=== PATIENT | female | born 1960 ===

== ENCOUNTER 2017-05-14 09:46 | Emergency (ER) | payer OTHER ==
[2017-05-14 09:46] VITALS: BMI 27.1
[2017-05-14 11:07] LABS: BASO % 0.9 % (0.0-2.0); EOS % 0.6 % (0.0-4.0); HEMOGLOBIN 11.9 g/dL (11.0-16.0); LYMPH # 1.2 K/uL (1.0-4.3); LYMPH % 25.6 % (20.0-40.0); MEAN CELL VOLUME 79.3 fL (81.0-99.0); MEAN CORPUSCULAR HEMOGLOBIN 25.8 pg (27.0-31.0); MEAN CORPUSCULAR HGB CONC 32.5 g/dL (33.0-37.0); MEAN PLATELET VOLUME 9.1 fL (7.2-11.7); MONO # 0.4 K/uL (0.0-0.8); MONO % 9.8 % (0.0-10.0); NEUT # 2.9 K/uL (1.8-7.0); NEUT % 63.1 % (50.0-75.0); NRBC % 0.1 % (0.0-2.0); RBC 4.61 Mil/uL (3.80-5.20); RED CELL DISTRIBUTION WIDTH 14.6 % (11.5-14.5); WHITE BLOOD COUNT 4.6 K/uL (4.8-10.8)
[2017-05-14 11:14] LABS: URINE BILIRUBIN NEGATIVE (NEGATIVE); URINE BLOOD NEGATIVE (NEGATIVE); URINE CLARITY Clear (Clear); URINE COLOR Yellow (YELLOW); URINE GLUCOSE (UA) NORMAL (Normal); URINE LEUKOCYTE ESTERASE NEG Leu/uL (Negative); URINE NITRATE NEGATIVE (NEGATIVE); URINE PROTEIN NEGATIVE (NEGATIVE); URINE UROBILINOGEN NORMAL mg/dL (0.2-1.0)
--- NOTE | 2017-05-14 11:47 | C.PDOC ---
History Of Present Illness 57-year-old female, PMHx includes Breast CA (dx one year ago, post lumpectomy, six months ago, currently on chemo every week), presents to the emergency department with complaints of vaginal bleeding over the past five days,. Patient states she went through menopause years ago, but she has been experiencing persistent vaginal bleed x4 days. States she has associated suprapubic pain. Patient notes a Hx of ovarian/breast CA in family. Denies nausea/vomiting, fevers or chills. Time Seen by Provider: 05/14/17 10:23 Chief Complaint (Nursing): Female Genitourinary History Per: Patient History/Exam Limitations: no limitations Onset/Duration Of Symptoms: Days Current Symptoms Are (Timing): Still Present Severity: Moderate Past Medical History Reviewed: Historical Data, Nursing Documentation, Vital Signs Vital Signs: Last Vital Signs Temp 98.0 F 05/14/17 13:24 Pulse 63 05/14/17 13:24 Resp 20 05/14/17 13:24 BP 136/84 05/14/17 13:24 Pulse Ox 99 05/14/17 18:39 - Medical History PMH: Hyperlipidemia, Kidney Stones, Chronic Kidney Disease - [facility] Procedures EXCISION OF LEFT BREAST, OPEN APPROACH, DIAGNOSTIC (12/20/16) FLUOROSCOPY OF SUPERIOR VENA CAVA, GUIDANCE (12/20/16) INSERTION OF INFUSION DEV INTO SUP VENA CAVA, PERC APPROACH (12/20/16) Family History: States: No Known Family Hx Other Family History: Cancer - Social History Hx Alcohol Use: No Hx Substance Use: No - Immunization History Hx Tetanus Toxoid Vaccination: No Hx Influenza Vaccination: No Hx Pneumococcal Vaccination: No Review Of Systems Except As Marked, All Systems Reviewed And Found Negative. Constitutional: Negative for: Fever Cardiovascular: Negative for: Chest Pain, Palpitations Respiratory: Negative for: Shortness of Breath Gastrointestinal: Negative for: Nausea, Vomiting Genitourinary: Positive for: Vaginal Bleeding, Pelvic Pain Neurological: Negative for: Weakness, Numbness Physical Exam - Physical Exam Appears: Non-toxic, No Acute Distress Skin: Warm, Dry, No Rash Head: Atraumatic, Normacephalic Eye(s): bilateral: Normal Inspection Nose: Normal Oral Mucosa: Moist Neck: Normal ROM Cardiovascular: Rhythm Regular, No Murmur Respiratory: Normal Breath Sounds, No Accessory Muscle Use Extremity: Normal ROM Neurological/Psych: Oriented x3, Normal Speech ED Course And Treatment - Laboratory Results Result Diagrams: 05/14/17 10:58 05/14/17 12:27 O2 Sat by Pulse Oximetry: 99 - CT Scan/US US transvaginal Other Rad Studies (CT/US): Read By Radiologist, Radiology Report Reviewed CT/US Interpretation: Accession No. : [id number]. Patient Name / ID : BERNARDO CLEARY A / [id number]. Exam Date : 05/14/2017 11:33:32 ( Approved ) . Study Comment : Sex / Age : F / [id number]. Creator : ALONZO HANDLEY MD. Dictator : ALONZO HANDLEY MD. Land Surveying Party Chief : Extra Gang Supervisor : ALONZO HANDLEY MD. Approver2 : Report Date : 05/14/2017 13:06:44. My Comment : . HISTORY: vag bleeding, pelvic pain. COMPARISON: None available. TECHNIQUE: Transabdominal and transvaginal. FINDINGS: UTERUS: Measures 5.9 x 2.8 x 3.1 cm. Normal in size and appearance. No fibroid or other mass lesion seen. ENDOMETRIUM: Measures 3 mm in diameter. Unremarkable. CERVIX: No cervical abnormality identified. RIGHT OVARY: Not visualized. LEFT OVARY: Not visualized. FREE FLUID: No significant free fluid noted. OTHER FINDINGS: None. IMPRESSION: Normal uterus. Ovaries not visualized. Otherwise unremarkable. Medical Decision Making Medical Decision Making: Plan: * CMP * CBC * Urinalysis * US Transvaginal * Reassess and Disposition On re-exam, the patient reports improvement of symptoms. A&O x 3, Ambulatory in the ED with steady gait. Lungs are CTA, heart is RRR, abdomen is soft, non- tender and tolerating PO well. Follow up with the medical doctor/medical clinic within 1-2 days. Return if worsened. Disposition - Disposition Referrals: [facility] [Outside] [place] [employer] [Outside] Disposition: HOME/ ROUTINE Disposition Time: 13:32 Condition: GOOD Additional Instructions: Follow up with the medical doctor within 1-2 days. Return if worsened. Instructions: Dysfunctional Uterine Bleeding (ED) Print Language: AMHARIC - Clinical Impression Clinical Impression: Dysfunctional uterine bleeding - PA / PIPE BOWLS PAINT TRIMMER / Resident Statement MD/DO has reviewed & agrees with the documentation as recorded. - Scribe Statement The provider has reviewed the documentation as recorded by the Scribe (Rojas Murphy) All medical record entries made by the Scribe were at my direction and personally dictated by me. I have reviewed the chart and agree that the record accurately reflects my personal performance of the history, physical exam, medical decision making, and the department course for this patient. I have also personally directed, reviewed, and agree with the discharge instructions and disposition.
[2017-05-14 12:43] LABS: ALBUMIN 3.6 g/dL (3.5-5.0)
[2017-05-14 12:45] LABS: GFR AFRICAN-AMERICAN > 60; GFR NON-AFRICAN AMERICAN > 60
[2017-05-14 12:46] LABS: ALT/SGPT 24 U/L (9-52); AST/SGOT 44 U/L (14-36); BLOOD UREA NITROGEN 13 mg/dL (7-17)
[2017-05-14 12:47] LABS: CALCIUM 8.6 mg/dl (8.6-10.4)
--- NOTE | 2017-05-14 13:08 | US ---
HISTORY: vag bleeding, pelvic pain COMPARISON: None available. TECHNIQUE: Transabdominal and transvaginal FINDINGS: UTERUS: Measures 5.9 x 2.8 x 3.1 cm. Normal in size and appearance. No fibroid or other mass lesion seen. ENDOMETRIUM: Measures 3 mm in diameter. Unremarkable. CERVIX: No cervical abnormality identified. RIGHT OVARY: Not visualized LEFT OVARY: Not visualized FREE FLUID: No significant free fluid noted. OTHER FINDINGS: None. IMPRESSION: Normal uterus. Ovaries not visualized. Otherwise unremarkable.
[2017-05-14 13:25] VITALS: BP 136/84; PULSE 63; RESP 20; TEMP 98
[2017-05-14 13:34] VITALS: O2SAT 99
== END 2017-05-14 13:40 | disposition home or self-care (01) ==
LOC: C.ER 09:46
DX: N93.8 Other specified abnormal uterine and vaginal bleeding (principal); N18.9 Chronic kidney disease, unspecified; E78.5 Hyperlipidemia, unspecified; Z80.3 Family history of malignant neoplasm of breast

== ENCOUNTER 2017-09-10 09:50 | Inpatient (IN) | payer OTHER ==
[2017-09-05 09:37] VITALS: BMI 29.7
[2017-09-10] MEDS ORDERED: ceFAZolin IV 1 gm in Dextrose 1 GM/50 ML BAG IVPB ONE ×2 (13:54→14:52)
[2017-09-10] MEDS ORDERED: Lactated Ringer's 1,000 ML IV ONE ×3 (14:10→15:54)
[2017-09-10] MEDS ORDERED: Propofol 10 mg/ml Inj (20 ML) ONE (14:19)
[2017-09-10] MEDS ORDERED: Morphine 4 MG/ML VIAL ONE (14:59)
[2017-09-10] MEDS ORDERED: Neostigmine Methylsulfate 3mg/3ml Syringe IV ONE (15:26)
[2017-09-10] MEDS ORDERED: Labetalol 25mg/5ml Syringe ONE (15:41)
[2017-09-10] MEDS ORDERED: Oxycodone/Acetaminophen 5/325 mg Tab PO PRN (15:56)
[2017-09-10] MEDS ORDERED: HYDROmorphone 0.5 mg/0.5 ml ISec IVP PRN (15:57)
[2017-09-10 17:14] LABS: BASO % 0.3 % (0.0-2.0); EOS % 0.2 % (0.0-4.0); LYMPH # 1.7 K/uL (1.0-4.3); LYMPH % 10.6 % (20.0-40.0); MEAN CELL VOLUME 76.5 fL (81.0-99.0); MEAN CORPUSCULAR HEMOGLOBIN 24.6 pg (27.0-31.0); MEAN CORPUSCULAR HGB CONC 32.2 g/dL (33.0-37.0); MEAN PLATELET VOLUME 9.3 fL (7.2-11.7); MONO # 1.1 K/uL (0.0-0.8); MONO % 6.9 % (0.0-10.0); RED CELL DISTRIBUTION WIDTH 14.5 % (11.5-14.5); WHITE BLOOD COUNT 15.9 K/uL (4.8-10.8)
[2017-09-10 17:20] LABS: CHLORIDE 100 mmol/L (98-107)
[2017-09-10 17:21] LABS: POTASSIUM 3.4 mmol/L (3.6-5.2); SODIUM 133 mmol/L (132-148)
[2017-09-10 17:23] LABS: GFR AFRICAN-AMERICAN > 60
[2017-09-10 17:24] LABS: BLOOD UREA NITROGEN 13 mg/dL (7-17); CALCIUM 8.7 mg/dl (8.6-10.4); CARBON DIOXIDE 23 mmol/L (22-30); GLUCOSE,RANDOM 184 mg/dL (65-105)
[2017-09-10] MEDS: Potassium Ch 20mEq in D5-1/2NS 1,000 ML IV SCH (19:31)
--- NOTE | 2017-09-10 23:03 | CP.PCM.HP ---
History of Present Illness - History of Present Illness History of Present Illness: CC; LEFT SIDED BREAST SURGERY HPI; MIDDLE AGED FEMALE WITH NO SIGNIFICANT PMH WHO IS S/P RESECTION OF MASS FROM LEFT BREAST, SHE IS ON POST OP CARE, C/O SOME POST OP PAIN, AFEBRILE , DENIES ANY NAUSEA, VOMITTING Present on Admission - Present on Admission Any Indicators Present on Admission: Yes Review of Systems - Review of Systems Systems not reviewed;Unavailable: Acuity of Condition - Constitutional Constitutional: Fatigue, Lethargy. absent: As Per HPI, Anorexia, Chills, Daytime Sleepiness, Excessive Sweating, Fever, Frequent Falls, Headache, Increased Appetite, Malaise, Night Sweats, Snoring, Sleep Apnea, Weight Gain, Weight Loss, Weakness, Other - EENT Eyes: absent: As Per HPI, Blind Spots, Blurred Vision, Change in Vision, Decreased Night Vision, Diplopia, Discharge, Dry Eye, Exophthalmos, Floaters, Irritation, Itchy Eyes, Loss of Peripheral Vision, Pain, Photophobia, Requires Corrective Lenses, Sees Flashes, Spots in Vision, Tunnel Vision, Other Visual Disturbances, Loss of Vision, Other - Breasts Breasts: As Per HPI, Mass, Pain - Cardiovascular Cardiovascular: absent: As Per HPI, Acrocyanosis, Chest Pain, Chest Pain at Rest , Chest Pain with Activity, Claudication, Diaphoresis, Dyspnea, Dyspnea on Exertion, Edema, Irregular Heart Rhythm, Pain Radiating to Arm/Neck/Jaw, Leg Edema, Leg Ulcers, Lightheadedness, Orthopnea, Palpitations, Paroxysmal Nocturnal Dyspnea, Pedal Edema, Radiating Pain, Rapid Heart Rate, Slow Heart Rate, Syncope, Other - Respiratory Respiratory: absent: As Per HPI, Cough, Dyspnea, Hemoptysis, Dyspnea on Exertion , Wheezing, Snoring, Stridor, Pain on Inspiration, Chest Congestion, Excessive Mucous Production, Change in Mucous Color, Pain with Coughing, Other - Gastrointestinal Gastrointestinal: absent: As Per HPI, Abdominal Pain, Belching, Bloating, Change in Bowel Habits, Change in Stool Character, Coffee Ground Emesis, Constipation, Cramping, Diarrhea, Dyspepsia, Dysphagia, Early Satiety, Excessive Flatus, Fecal Incontinence, Heartburn, Hematemesis, Hematochezia, Loose Stools, Melena, Nausea, Odynophagia, Temesmus, Vomiting, Other - Genitourinary Genitourinary: absent: As Per HPI, Change in Urinary Stream, Difficulty Urinating, Dysuria, Flank Pain, Hematuria, Pyuria, Nocturia, Urinary Incontinence, Urinary Frequency, Urinary Hesitance, Urinary Urgency, Voiding Freq/Small Amts, Freq UTI, Hx Renal/Bladder Calculi, Hx /Renal Surgery, Bladder Distension, Other - Reproductive: Female Reproductive:Female: absent: As Per HPI, Amenorrhea, Amenorrhea/ Control, Currently Menstual, Cycle <21 Days, Cycle >35 Days, Cycle Variable, Menses 1-7 Days, Menses >/= 8 Days, Menses Variable, Cycle > 4 Weeks Between, No Menses for 6 Months, Heavy Menses, Light Menses, Normal Menses, Spotting Between Cycles , S/P Hysterectomy, Menopausal, Post Menopausal, Premenarche, Abnormal Vaginal Bleeding, Dysmenorrhea, Dyspareunia, Genital Lesions, Genital Pruritis, Pelvic Pain, Prolapse Symptoms, Sexual Dysfunction, Vaginal Discharge, Vaginal Dryness , Vaginal Odor, Vaginal Pruritis, Other - Musculoskeletal Musculoskeletal: absent: As Per HPI, Abnormal Gait, Arthralgias, Atrophy, Back Pain, Deformity, Joint Swelling, Limited Range of Motion, Loss of Height, Muscle Cramps, Muscle Weakness, Myalgias, Neck Pain, Numbness, Radiating Pain into Limb, Stiffness, Tingling, Other - Integumentary Integumentary: absent: As Per HPI, Acne, Alopecia, Bleeding Lesions, Change in Hair, Change in Nails, Change in Pigmentation, Changing Lesions, Dry Skin, Erythema, Furuncle, Hirsutism, Lesions, New Lesions, Non-Healing Lesions, Photosensitivity, Pruritus, Rash, Skin Pain, Skin Ulcer, Sores, Striae, Swelling , Unusual Bruising, Wounds, Jaundice, Other - Neurological Neurological: absent: As Per HPI, Abnormal Gait, Abnormal Hearing, Abnormal Movements, Abnormal Speech, Behavioral Changes, Burning Sensations, Confusion, Convulsions, Disequilibrium, Dizziness, Numbness, Focal Weakness, Frequent Falls , Headaches, Lack of Coordination, Loss of Vision, Memory Loss, Paresthesias, Radicular Pain, Restless Legs, Sensory Deficit, Syncope, Tingling, Tremor, Vertigo, Weakness, Other Visual Disturbances, Other - Psychiatric Psychiatric: absent: As Per HPI, Abnormal Sleep Pattern, Anhedonia, Anxiety, Auditory Hallucinations, Behavioral Changes, Change in Appetite, Change in Libido, Confusion, Depression, Difficulty Concentrating, Hallucinations, Homicidal Ideation, Hopelessness, Irritability, Memory Loss, Mood Swings, Panic Attacks, Paranoia, Suicidal Ideation, Visual Hallucinations, Tactile Hallucinations, Other - Endocrine Endocrine: absent: As Per HPI, Change in Body Appearance, Change in Libido, Cold Intolorance, Deepening of Voice, Excessive Sweating, Fatigue, Flushing, Heat Intolorance, Increase in Ring/Shoe/Hat Size, Palpitations, Polydipsia, Polyphagia, Polyuria, Other - Hematologic/Lymphatic Hematologic: absent: As Per HPI, Easy Bleeding, Easy Bruising, Lymphadenopathy, Other Past Patient History - Infectious Disease Hx of Infectious Diseases: None - Past Medical History & Family History Past Medical History?: Yes - Past Social History Smoking Status: Heavy Smoker > 10 Cigarettes Daily - CARDIAC Hx Cardiac Disorders: No - PULMONARY Hx Respiratory Disorders: No - NEUROLOGICAL Hx Neurological Disorder: No - HEENT Hx HEENT Problems: Yes Other/Comment: chronic right sided tinnitus/decreased hearing - RENAL Hx Chronic Kidney Disease: Yes Hx Kidney Stones: Yes (2014) - ENDOCRINE/METABOLIC Hx Endocrine Disorders: No - HEMATOLOGICAL/ONCOLOGICAL Hx Blood Disorders: No Hx Cancer: Yes (LEFT BREAST CA OCT 2016) Hx Chemotherapy: Yes (1 WEEK AGO) - INTEGUMENTARY Hx Dermatological Problems: No - MUSCULOSKELETAL/RHEUMATOLOGICAL Hx Falls: No - GASTROINTESTINAL Hx Gastrointestinal Disorders: No - GENITOURINARY/GYNECOLOGICAL Hx Genitourinary Disorders: Yes Hx Reproductive Disorders: Yes (OVARIAN CYST) - PSYCHIATRIC Hx Substance Use: No - SURGICAL HISTORY Hx Surgeries: Yes Hx Breast Biopsy: Yes ([facility]) Hx Section: Yes (X3) Hx Vascular Surgery: Yes (LIFE PORT INSERTION RIGHT CHEST) Other/Comment: R oopherectomy 10/2014 cystoscopy stent insertion STENT REMOVAL - ANESTHESIA Hx Anesthesia: Yes Hx Anesthesia Reactions: No Hx Malignant Hyperthermia: No Has any member of the family had a problem w/ anesthesia?: No Meds Allergies/Adverse Reactions: Allergies Allergy/AdvReac Type Severity Reaction Status Date / Time No Known Allergies Allergy Verified 05/14/17 09:53 Physical Exam - Constitutional Appears: No Acute Distress - Head Exam Head Exam: ATRAUMATIC, NORMAL INSPECTION, NORMOCEPHALIC - Eye Exam Eye Exam: EOMI, Normal appearance, PERRL Pupil Exam: NORMAL ACCOMODATION, PERRL - ENT Exam ENT Exam: Mucous Membranes Moist, Normal Exam - Neck Exam Neck exam: Positive for: Normal Inspection - Respiratory Exam Respiratory Exam: Clear to Auscultation Bilateral, NORMAL BREATHING PATTERN - Cardiovascular Exam Cardiovascular Exam: REGULAR RHYTHM - GI/Abdominal Exam GI & Abdominal Exam: Normal Bowel Sounds, Soft. absent: Tenderness Results - Vital Signs Recent Vital Signs: Last Vital Signs Temp 97.7 F 09/10/17 18:39 Pulse 67 09/10/17 18:39 Resp 18 09/10/17 18:55 BP 127/82 09/10/17 18:39 Pulse Ox 98 09/10/17 18:39 - Labs Result Diagrams: 09/10/17 17:03 09/10/17 17:03 Labs: Laboratory Results - last 24 hr 09/10/17 09/10/17 09/10/17 11:12 17:03 17:03 WBC 15.9 H D RBC 4.45 Hgb 11.0 Hct 34.0 MCV 76.5 L MCH 24.6 L MCHC 32.2 L RDW 14.5 Plt Count 335 MPV 9.3 Neut % (Auto) 82.0 H Lymph % (Auto) 10.6 L Smyth % (Auto) 6.9 Eos % (Auto) 0.2 Baso % (Auto) 0.3 Neut # 13.1 H Lymph # 1.7 Smyth # 1.1 H Eos # 0.0 Baso # 0.0 Sodium 133 Potassium 3.4 L Chloride 100 Carbon Dioxide 23 Anion Gap 13 BUN 13 Creatinine 0.7 Est GFR ( Amer) > 60 Est GFR (Non-Af Amer) > 60 Random Glucose 184 H Calcium 8.7 Blood Type O POSITIVE Antibody Screen Negative Assessment & Plan (1) Breast cancer Assessment and Plan: S/P RESECTION OF BREAST MASS ON LEFT BREAST POST OP CARE Status: Acute
[2017-09-11] MEDS: Potassium Ch 20mEq in D5-1/2NS 1,000 ML IV SCH ×3 (04:55→20:30)
[2017-09-11 08:03] LABS: HEMATOCRIT 31.2 % (34.0-47.0); MEAN CELL VOLUME 76.2 fL (81.0-99.0); MEAN CORPUSCULAR HEMOGLOBIN 25.2 pg (27.0-31.0); MEAN CORPUSCULAR HGB CONC 33.1 g/dL (33.0-37.0); MEAN PLATELET VOLUME 9.2 fL (7.2-11.7); RED CELL DISTRIBUTION WIDTH 14.6 % (11.5-14.5)
[2017-09-11 08:29] LABS: CHLORIDE 99 mmol/L (98-107)
[2017-09-11 08:30] LABS: POTASSIUM 3.8 mmol/L (3.6-5.2); SODIUM 133 mmol/L (132-148)
[2017-09-11 08:32] LABS: GFR AFRICAN-AMERICAN > 60
[2017-09-11 08:33] LABS: BLOOD UREA NITROGEN 13 mg/dL (7-17); CALCIUM 8.3 mg/dl (8.6-10.4); CARBON DIOXIDE 25 mmol/L (22-30); GLUCOSE,RANDOM 94 mg/dL (65-105)
--- NOTE | 2017-09-11 21:03 | CP.PCM.PN ---
Subjective - Date & Time of Evaluation Date of Evaluation: 09/11/17 Time of Evaluation: 19:05 - Subjective Subjective: pt seen and evalauted s/p surgery left breast, on post op care denies any shortness of breath, chest pain Objective - Vital Signs/Intake and Output Vital Signs (last 24 hours): Temp Pulse Resp BP Pulse Ox 98.5 F 79 20 112/70 97 09/11/17 15:11 09/11/17 15:11 09/11/17 15:11 09/11/17 15:11 09/11/17 15:11 Intake and Output: 09/11/17 09/12/17 18:59 06:59 Intake Total 935 Output Total 2 Balance 933 - Medications Medications: Current Medications Docusate Sodium (Colace) 100 mg PO BID [facility] Last Admin: 09/11/17 17:19 Dose: Not Given Heparin Sodium (Porcine) (Heparin) 5,000 units SC Q12 [facility] Potassium Chloride/Dextrose/Sod Cl (Potassium Chl 20 Meq In D5-1/2ns) 1,000 mls @ 80 mls/hr IV .[id number] [facility] Last Admin: 09/11/17 05:19 Dose: 80 mls/hr Ketorolac Tromethamine (Toradol) 30 mg IVP Q6 PRN PRN Reason: pain 8-10 Stop: 09/15/17 15:57 Oxycodone/Acetaminophen (Percocet 5/325 Mg Tab) 2 tab PO Q4H PRN PRN Reason: pain Stop: 09/13/17 15:57 Pantoprazole Sodium (Protonix Inj) 40 mg IVP DAILY [facility] Last Admin: 09/11/17 09:23 Dose: 40 mg - Labs Labs: 09/11/17 07:35 09/11/17 07:35 Assessment and Plan (1) Breast cancer Status: Acute
--- NOTE | 2017-09-11 22:56 | PN ---
DATE: 09/11/2017 SUBJECTIVE: Postoperative day #1. The patient is resting comfortably in bed status post left modified radical mastectomy. She currently has no complaints. She has minimal incision pain. PHYSICAL EXAMINATION: VITAL SIGNS: Temperature 98.5, pulse 79, blood pressure 112/70, respiratory rate is 20 and O2 sat is 97% on room air. CHEST: Examination of the chest wall which reveals a clean dressing. The [facility] has drained 60 mL over the last 24 hours. It has not drained anything for the past 6 hours. LABORATORY DATA: The patient's laboratories are reviewed and her hemoglobin was 10 and hematocrit was 31. They were all otherwise within normal limits. ASSESSMENT AND PLAN: She is doing well postoperative day #1 status post a left modified radical mastectomy. If she continues to do well, she most likely will be discharged tomorrow with a visiting nurse for [facility] management and wound care. She will follow up with me in 1 week. Bharath Suero MD
--- NOTE | 2017-09-12 07:22 | OP ---
PROCEDURE DATE: 09/10/2017 PREOPERATIVE DIAGNOSIS: Adenocarcinoma of the left breast. POSTOPERATIVE DIAGNOSIS: Adenocarcinoma of the left breast. PROCEDURE PERFORMED: 1. Left modified radical mastectomy (81852). 2. Repair of infraclavicular blood vessel (56127). 3. Adjacent tissue transfer closure greater than 30 cm2 (22057). INDICATION FOR SURGERY: This is a 57-year-old female who presented with a large T4 breast tumor 6 months ago for which she underwent an incisional biopsy. She was placed on neoadjuvant chemotherapy to shrink the tumor and after 6 months the tumor has strong to the point where she can undergo a mastectomy safely. She now is scheduled for a left modified radical mastectomy. Corresponding, there was no tumor encountered; although, a wide incision on the breast had to be made necessitating an advancement flap closure to close the wound. An infraclavicular bleeding vessel was also repaired during the procedure. DESCRIPTION OF PROCEDURE: The patient was taken to the operating room, general anesthesia was administered and the left breast was prepped and draped. A generous elliptical incision was made on the outer borders on the breast and superior and inferior tissue flaps were raised. The incisions were connected in the midline and they were dissected free all the way into the pectoralis fascia. At this point, a bleeding blood vessel infraclavicularly was repaired with Prolene. Remaining blood vessels were ligated with the Bovie. The breast was taken off the chest wall including the pectoral fascia by incising in the plain between the pectoral fascia and pectoral muscle. The dissection took place into the axilla and the borders of the axillary dissection were then encountered. The thoracodorsal and long thoracic nerve were encountered and preserved. All breast tissue lateral to serratus anterior muscle medial to the latissimus muscle and inferior to the axillary vein was removed via various branches, the axillary vein were controlled via Hemoclip. Once the fran contents had been removed, the wound was irrigated with copious amounts of saline solution. A Rodolfo drain was brought into the wound with lateral . Because of the tightness of the closure, advancement flaps were raised by widely undermining use of the Bovie and a greater than 30 cm2 advancement flap closure was performed. An advancement flaps were raised both inferiorly and superiorly. Multiple layers of Monocryl and subcuticular Monocryl were used. The skin was closed with skin kenna and the drain was secured using a Nylon suture. The patient tolerated the procedure well. Return to recovery room in stable condition. Bharath Suero MD
[2017-09-12] MEDS: Potassium Ch 20mEq in D5-1/2NS 1,000 ML IV SCH (09:29)
--- NOTE | 2017-09-12 22:12 | CP.PCM.PN ---
Subjective - Date & Time of Evaluation Date of Evaluation: 09/12/17 Time of Evaluation: 20:45 - Subjective Subjective: PT SEEN AND EXAINED BY ME TODAY Objective - Vital Signs/Intake and Output Vital Signs (last 24 hours): Temp Pulse Resp BP Pulse Ox 98.4 F 84 20 126/77 99 09/12/17 15:30 09/12/17 15:30 09/12/17 15:30 09/12/17 15:30 09/12/17 15:30 Intake and Output: 09/12/17 09/13/17 18:59 06:59 Intake Total 1040 Output Total 0 Balance 1040 - Medications Medications: Current Medications Docusate Sodium (Colace) 100 mg PO BID [facility] Last Admin: 09/12/17 18:30 Dose: 100 mg Heparin Sodium (Porcine) (Heparin) 5,000 units SC Q12 [facility] Last Admin: 09/12/17 21:19 Dose: 5,000 units Potassium Chloride/Dextrose/Sod Cl (Potassium Chl 20 Meq In D5-1/2ns) 1,000 mls @ 80 mls/hr IV .[id number] [facility] Last Admin: 09/12/17 09:29 Dose: 80 mls/hr Oxycodone/Acetaminophen (Percocet 5/325 Mg Tab) 2 tab PO Q4H PRN PRN Reason: pain Stop: 09/13/17 15:57 Pantoprazole Sodium (Protonix Inj) 40 mg IVP DAILY [facility] Last Admin: 09/12/17 09:29 Dose: 40 mg - Labs Labs: 09/11/17 07:35 09/11/17 07:35 Assessment and Plan (1) Breast cancer Status: Acute
[2017-09-13 00:33] VITALS: TEMP 98.1
[2017-09-13 09:04] VITALS: BP 135/80; PULSE 74; RESP 18; O2SAT 97
--- NOTE | 2017-09-13 22:52 | CP.PCM.DIS ---
Provider - Provider Date of Admission: 09/10/17 15:57 Attending physician: Bharath Suero MD Diagnosis - Discharge Diagnosis (1) Breast cancer Status: Acute Hospital Course - Lab Results Lab Results: Most Recent Lab Values WBC 7.0 K/uL (4.8-10.8) D 09/11/17 07:35 RBC 4.09 Mil/uL (3.80-5.20) 09/11/17 07:35 Hgb 10.3 g/dL (11.0-16.0) L 09/11/17 07:35 Hct 31.2 % (34.0-47.0) L 09/11/17 07:35 MCV 76.2 fL (81.0-99.0) L 09/11/17 07:35 MCH 25.2 pg (27.0-31.0) L 09/11/17 07:35 MCHC 33.1 g/dL (33.0-37.0) 09/11/17 07:35 RDW 14.6 % (11.5-14.5) H 09/11/17 07:35 Plt Count 259 K/uL (130-400) 09/11/17 07:35 MPV 9.2 fL (7.2-11.7) 09/11/17 07:35 Neut % (Auto) 82.0 % (50.0-75.0) H 09/10/17 17:03 Lymph % (Auto) 10.6 % (20.0-40.0) L 09/10/17 17:03 Swain % (Auto) 6.9 % (0.0-10.0) 09/10/17 17:03 Eos % (Auto) 0.2 % (0.0-4.0) 09/10/17 17:03 Baso % (Auto) 0.3 % (0.0-2.0) 09/10/17 17:03 Neut # 13.1 K/uL (1.8-7.0) H 09/10/17 17:03 Lymph # 1.7 K/uL (1.0-4.3) 09/10/17 17:03 Swain # 1.1 K/uL (0.0-0.8) H 09/10/17 17:03 Eos # 0.0 K/uL (0.0-0.7) 09/10/17 17:03 Baso # 0.0 K/uL (0.0-0.2) 09/10/17 17:03 Sodium 133 mmol/L (132-148) 09/11/17 07:35 Potassium 3.8 mmol/L (3.6-5.2) 09/11/17 07:35 Chloride 99 mmol/L (98-107) 09/11/17 07:35 Carbon Dioxide 25 mmol/L (22-30) 09/11/17 07:35 Anion Gap 13 (10-20) 09/11/17 07:35 BUN 13 mg/dL (7-17) 09/11/17 07:35 Creatinine 0.7 mg/dL (0.7-1.2) 09/11/17 07:35 Est GFR ( Amer) > 60 09/11/17 07:35 Est GFR (Non-Af Amer) > 60 09/11/17 07:35 Random Glucose 94 mg/dL (65-105) 09/11/17 07:35 Calcium 8.3 mg/dl (8.6-10.4) L 09/11/17 07:35 Blood Type O POSITIVE 09/10/17 11:12 Antibody Screen Negative 09/10/17 11:12 Discharge Exam - Head Exam Head Exam: ATRAUMATIC, NORMAL INSPECTION, NORMOCEPHALIC Discharge Plan - Follow Up Plan Condition: GOOD Disposition: HOME/ ROUTINE Instructions: [facility] Drain Care (DC), Pain Management After Surgery (DC) , Mastectomy (DC) Additional Instructions: Call Dr Suero for appt for 09/17. Bring GILDARDO drainage record with you. Take tylenol or advil for pain Tramadol for pain may remove dressings and shower daily Pin GILDARDO to clothes at all times record GILDARDO drainage BID Home PT and visiting nurse Referrals: Bharath Suero MD [Staff Provider] -
== END 2017-09-13 14:21 | disposition home or self-care (01) | DRG 257 ==
LOC: C.SDS 09:50 → C.9S 15:57 → C.6T 17:49
PROVIDERS: ADMIT Surgery; ATTEND Surgery
PROC: 07B60ZX Excision of Left Axillary Lymphatic, Open Approach, Diagnostic (ICD-10-PCS; 2017-09-10)
PROC: 0HTU0ZZ Resection of Left Breast, Open Approach (ICD-10-PCS; principal; 2017-09-10 14:00)
DX: C50.912 Malignant neoplasm of unspecified site of left female breast (principal); C77.3 Secondary and unspecified malignant neoplasm of axilla and upper limb lymph nodes; N18.9 Chronic kidney disease, unspecified; H93.19 Tinnitus, unspecified ear; F17.210 Nicotine dependence, cigarettes, uncomplicated; Z23 Encounter for immunization; Z87.442 Personal history of urinary calculi

== ENCOUNTER 2018-09-11 06:37 | Day surgery (SDC) | payer OTHER ==
[2018-09-05 07:57] VITALS: BMI 30.2
[2018-09-11] MEDS ORDERED: Propofol 10 mg/ml Inj (20 ML) ONE (11:16)
[2018-09-11] MEDS ORDERED: Midazolam 2 MG/2 ML VIAL ONE (11:16)
[2018-09-11] MEDS ORDERED: ceFAZolin IV 1 gm in Dextrose 1 GM/50 ML BAG IVPB ONE (11:27)
[2018-09-11] MEDS ORDERED: Bupivacaine HCl 0.5% PF (30 ml) Inj ONE (11:27)
[2018-09-11] MEDS ORDERED: Bacitracin Ointment 30 GM TUBE ONE (11:57)
[2018-09-11] MEDS ORDERED: Oxycodone/Acetaminophen 5/325 mg Tab PO PRN (12:06)
[2018-09-11] MEDS ORDERED: HYDROmorphone 0.5 mg/0.5 ml ISec IVP PRN (12:22)
[2018-09-11] MEDS ORDERED: Lactated Ringer's 1,000 ML IV SCH (12:30)
[2018-09-11 13:51] VITALS: RESP 16
--- NOTE | 2018-09-11 16:54 | US ---
Date of service: 09/11/2018 HISTORY: Patient is a 58-year-old female with history of left breast cancer previously treated by mastectomy and present currently presenting with a small, irregular mass deep to the prior mastectomy scar at the left chest. TECHNIQUE/FINDINGS: Following full discussion of risks and benefits of the procedure with the patient including alternatives, using a supervisor microfilm duplicating unit, patient freely gave written consent. A time-out was called. The mass was identified with ultrasound at the lateral left breast with overlying skin was marked for procedure. Following sonographic identification of the lesion in question, maximum sterile barrier protection was provided to the skin overlying the lesion. 1 cc of 1 percent lidocaine was utilized for skin anesthesia with 3 cc of 1 percent lidocaine utilized for deep tissue anesthesia. A 7.5 cm guiding needle was advanced through the lesion in question under ultrasound control. Subsequently, a modified Kopan's wire was advanced through the needle with the needle subsequently removed. Confirmation ultrasonography reveals the wire traversing the lesion in question left chest deep soft tissues in longitudinal and transverse projections. Subsequently, the wire was properly secured in good position. Patient tolerated the procedure well with no complications. Postoperative specimen mammogram was not performed as per referring physician request. The initial lesion in question was not identified using mammography. OTHER FINDINGS: None. IMPRESSION: Status post successful left chest needle localization under sonographic control. When final pathological results are made available, an addendum this report can be provided.
[2018-09-11 18:00] VITALS: BP 128/73; PULSE 78; TEMP 97.9; O2SAT 99
--- NOTE | 2018-09-11 22:40 | OP ---
PROCEDURE DATE: 09/11/2018 PREOPERATIVE DIAGNOSES: Left chest wall mass, also status post mastectomy for breast cancer. POSTOPERATIVE DIAGNOSES: Left chest wall mass, also status post mastectomy for breast cancer. PROCEDURE PERFORMED: Wide deep excision of left chest wall mass with advancement flap closure. SURGEON: Bharath Suero MD ANESTHESIA: General. ESTIMATED BLOOD LOSS: 40 mL. POSTOPERATIVE CONDITION: Stable. INDICATIONS FOR SURGERY: This is a 58-year-old female who one year ago underwent a left mastectomy with sentinel node biopsy for invasive breast cancer. There were elements of carcinoma in situ within the specimen. The patient presents now with a 5 cm chest wall mass and underwent a needle localization prior to removal today. PROCEDURE : The patient was taken to the operating room, general anesthesia was administered, and the left chest wall was prepped and draped. A generous elliptical incision was made surrounding the wire site and carried down through the skin and subcutaneous tissue. Superior and inferior flaps were raised and then dissected down to the chest wall. The specimen was removed en bloc including the wire into the chest wall muscle layer. Bleeding was controlled using the Bovie. Generous full-thickness tissue flaps were raised including fascia. Counter incisions were made and an advancement flap closure totaling 32 sq cm was performed using multiple layers of Monocryl, subcuticular Monocryl, and skin clips. The patient tolerated the procedure well and returned to recovery room in stable condition. Bharath Suero MD
== END 2018-09-11 17:57 | disposition home or self-care (01) ==
LOC: C.SDS 06:37
PROVIDERS: ATTEND Surgery
DX: D48.7 Neoplasm of uncertain behavior of other specified sites (principal); C50.919 Malignant neoplasm of unspecified site of unspecified female breast
CPT/HCPCS: 11406; 15600; 19285; 88307; J0690; J2250; J2405; J2704; J3010

== ENCOUNTER 2019-01-19 11:23 | Emergency (ER) | payer OTHER ==
[2019-01-19 11:23] VITALS: BMI 29.7
[2019-01-19 11:39] VITALS: O2SAT 97
[2019-01-19 12:41] LABS: SQUAMOUS EPITHIAL 1 /hpf (0-5); URINE BACTERIA RARE (<OCC); URINE BILIRUBIN NEGATIVE (NEGATIVE); URINE BLOOD 1+ (NEGATIVE); URINE CLARITY Clear (Clear); URINE COLOR Amber (YELLOW); URINE GLUCOSE (UA) NORMAL (Normal); URINE LEUKOCYTE ESTERASE NEG Leu/uL (Negative); URINE PROTEIN NEGATIVE (NEGATIVE); URINE UROBILINOGEN NORMAL mg/dL (0.2-1.0)
[2019-01-19 15:23] LABS: BASO % 0.4 % (0.0-2.0); EOS % 0.1 % (0.0-4.0); HEMOGLOBIN 12.3 g/dL (11.0-16.0); LYMPH # 0.3 K/uL (1.0-4.3); LYMPH % 5.3 % (20.0-40.0); MEAN CELL VOLUME 78.3 fL (81.0-99.0); MEAN CORPUSCULAR HEMOGLOBIN 25.3 pg (27.0-31.0); MEAN CORPUSCULAR HGB CONC 32.3 g/dL (33.0-37.0); MEAN PLATELET VOLUME 8.8 fL (7.2-11.7); MONO # 0.6 K/uL (0.0-0.8); NEUT # 5.2 K/uL (1.8-7.0); NEUT % 84.2 % (50.0-75.0); PLATELET COUNT 254 K/uL (130-400); RBC 4.86 Mil/uL (3.80-5.20); RED CELL DISTRIBUTION WIDTH 14.4 % (11.5-14.5); WHITE BLOOD COUNT 6.2 K/uL (4.8-10.8)
[2019-01-19 15:32] LABS: INR 1.1; PROTHROMBIN TIME 12.3 SECONDS (9.7-12.2)
[2019-01-19 15:38] LABS: VENOUS BLOOD GAS BASE EXCESS 0.1 mmol/L (0.0-2.0); VENOUS BLOOD GAS PCO2 39 mmHg (40-60); VENOUS BLOOD GAS PO2 41 mm/Hg (30-55); VENOUS BLOOD PH 7.41 (7.32-7.43)
[2019-01-19 15:39] LABS: ALB/GLOB RATIO 1.3 (1.0-2.1); ALBUMIN 4.6 g/dL (3.5-5.0); BLOOD UREA NITROGEN 14 mg/dL (7-17); GFR NON-AFRICAN AMERICAN > 60
[2019-01-19 15:40] LABS: LYMPHOCYTE 5 % (20-40); MONOCYTE 9 % (0-10); NEUTROPHIL 86 % (50-75); PLATELET ESTIMATE NORMAL (NORMAL); TOTAL CELLS COUNTED 100
[2019-01-19 15:41] LABS: ANISOCYTOSIS SLIGHT; HYPOCHROMIC SLIGHT; POLYCHROMIC SLIGHT
[2019-01-19 15:44] LABS: ALT/SGPT 9 U/L (9-52); AST/SGOT 41 U/L (14-36)
--- NOTE | 2019-01-19 16:10 | C.PDOC ---
HPI: Influenza Time Seen by Provider: 01/19/19 11:36 Chief Complaint: Flu-like Symptoms Past Medical History Vital Signs: Last Vital Signs Temp 99.6 F 01/19/19 13:21 Pulse 105 H 01/19/19 13:21 Resp 18 01/19/19 13:21 BP 108/64 01/19/19 13:21 Pulse Ox 97 01/19/19 13:21 - Medical History PMH: Depression, Hyperlipidemia, Kidney Stones (2014), Chronic Kidney Disease - [facility] Procedures EXCISION OF LEFT AXILLARY LYMPHATIC, OPEN APPROACH, DIAGN (09/10/17) EXCISION OF LEFT BREAST, OPEN APPROACH, DIAGNOSTIC (12/20/16) FLUOROSCOPY OF SUPERIOR VENA CAVA, GUIDANCE (12/20/16) INSERTION OF INFUSION DEV INTO SUP VENA CAVA, PERC APPROACH (12/20/16) RESECTION OF LEFT BREAST, OPEN APPROACH (09/10/17) - Social History Hx Alcohol Use: No Hx Substance Use: No - Immunization History Hx Tetanus Toxoid Vaccination: No Hx Influenza Vaccination: No Hx Pneumococcal Vaccination: No - Laboratory Results Result Diagrams: 01/19/19 15:15 01/19/19 15:15 Lab Results: pO2 41 mm/Hg (30-55) 01/19/19 15:33 VBG pH 7.41 (7.32-7.43) 01/19/19 15:33 VBG pCO2 39 mmHg (40-60) L 01/19/19 15:33 VBG HCO3 24.4 mmol/L 01/19/19 15:33 VBG Total CO2 25.9 mmol/L (22-28) 01/19/19 15:33 VBG O2 Sat (Calc) 81.0 % (40-65) H 01/19/19 15:33 VBG Base Excess 0.1 mmol/L (0.0-2.0) 01/19/19 15:33 VBG Potassium 3.2 mmol/L (3.6-5.2) L 01/19/19 15:33 Sodium 140.0 mmol/l (132-148) 01/19/19 15:33 Chloride 107.0 mmol/L (98-107) 01/19/19 15:33 Glucose 94 mg/dl (65-105) 01/19/19 15:33 Lactate 1.2 mmol/L (0.7-2.1) 01/19/19 15:33 PT 12.3 SECONDS (9.7-12.2) H 01/19/19 15:15 INR 1.1 01/19/19 15:15 APTT 37 SECONDS (21-34) H 01/19/19 15:15 Total Bilirubin 1.3 mg/dL (0.2-1.3) 01/19/19 15:15 AST 41 U/L (14-36) H 01/19/19 15:15 ALT 9 U/L (9-52) D 01/19/19 15:15 Alkaline Phosphatase 171 U/L (38-126) H 01/19/19 15:15 Total Protein 8.2 g/dL (6.3-8.3) 01/19/19 15:15 Albumin 4.6 g/dL (3.5-5.0) 01/19/19 15:15 Globulin 3.5 gm/dL (2.2-3.9) 01/19/19 15:15 Albumin/Globulin Ratio 1.3 (1.0-2.1) 01/19/19 15:15 Urine Color Aneta (YELLOW) 01/19/19 12:09 Urine Clarity Clear (Clear) 01/19/19 12:09 Urine pH 6.0 (5.0-8.0) 01/19/19 12:09 Ur Specific [place] 1.020 (1.003-1.030) 01/19/19 12:09 Urine Protein Negative mg/dL (NEGATIVE) 01/19/19 12:09 Urine Glucose (UA) Normal mg/dL (Normal) 01/19/19 12:09 Urine Ketones Negative mg/dL (NEGATIVE) 01/19/19 12:09 Urine Blood 1+ (NEGATIVE) H 01/19/19 12:09 Urine Nitrate Negative (NEGATIVE) 01/19/19 12:09 Urine Bilirubin Negative (NEGATIVE) 01/19/19 12:09 Urine Urobilinogen Normal mg/dL (0.2-1.0) 01/19/19 12:09 Ur Leukocyte Esterase Neg Silvano/uL (Negative) 01/19/19 12:09 Urine WBC (Auto) 1 /hpf (0-5) 01/19/19 12:09 Urine RBC (Auto) 6 /hpf (0-3) H 01/19/19 12:09 Ur Squamous Epith Cells 1 /hpf (0-5) 01/19/19 12:09 Urine Bacteria Rare (<OCC) 01/19/19 12:09 - ECG Interpretation Of Abn EKG: Normal sinus rhythm at 97bpm. Nonspecific ST and T wave abnormality. Abnormal EKG. O2 Sat by Pulse Oximetry: 97 Disposition - Disposition
--- NOTE | 2019-01-19 16:15 | C.PDOC ---
History Of Present Illness 59 year old female with a history of breast cancer s/p left breast mastectomy presents to the emergency department for medical evaluation of fever since last night with associated headaches, body aches, and dry cough. Patient denies taking any medications, any previous flu shots, and sick contacts at home. Patient admits to nausea but denies vomiting, shortness of breath, chest pain, and abdominal pain. She rates her headache as 8/10 in severity. Time Seen by Provider: 01/19/19 11:36 Chief Complaint (Nursing): Flu-like Symptoms History Per: Patient History/Exam Limitations: no limitations Onset/Duration Of Symptoms: Days (1) Current Symptoms Are (Timing): Still Present Associated Symptoms: Fever, Cough, Nausea. denies: Vomiting, Diarrhea, Other ( shortness of breath, chest pain, abdominal pain) Past Medical History Reviewed: Historical Data, Nursing Documentation, Vital Signs Vital Signs: Last Vital Signs Temp 99.6 F 01/19/19 13:21 Pulse 105 H 01/19/19 13:21 Resp 18 01/19/19 13:21 BP 108/64 01/19/19 13:21 Pulse Ox 97 01/19/19 13:21 - Medical History PMH: Depression, Hyperlipidemia, Kidney Stones (2015), Chronic Kidney Disease Surgical History: No Surg Hx - [facility] Procedures EXCISION OF LEFT AXILLARY LYMPHATIC, OPEN APPROACH, DIAGN (09/10/17) EXCISION OF LEFT BREAST, OPEN APPROACH, DIAGNOSTIC (12/20/16) FLUOROSCOPY OF SUPERIOR VENA CAVA, GUIDANCE (12/20/16) INSERTION OF INFUSION DEV INTO SUP VENA CAVA, PERC APPROACH (12/20/16) RESECTION OF LEFT BREAST, OPEN APPROACH (09/10/17) Family History: States: No Known Family Hx - Social History Hx Alcohol Use: No Hx Substance Use: No - Immunization History Hx Tetanus Toxoid Vaccination: No Hx Influenza Vaccination: No Hx Pneumococcal Vaccination: No Review Of Systems Constitutional: Positive for: Fever Cardiovascular: Negative for: Chest Pain Respiratory: Positive for: Cough. Negative for: Shortness of Breath Gastrointestinal: Positive for: Nausea. Negative for: Vomiting, Abdominal Pain, Diarrhea Neurological: Positive for: Headache Physical Exam - Physical Exam Appears: Non-toxic, No Acute Distress Skin: Normal Color, Warm, Dry Head: Atraumatic, Normacephalic Eye(s): bilateral: Normal Inspection, PERRL, EOMI Nose: Normal Oral Mucosa: Moist Throat: Normal, No Erythema, No Exudate Neck: Normal, Supple Lymphatic: Other (surgical scar to left chest wall s/p mastectomy) Chest: Symmetrical Cardiovascular: Rhythm Regular, No Murmur Respiratory: Normal Breath Sounds, No Rales, No Rhonchi, No Wheezing Gastrointestinal/Abdominal: Soft, No Tenderness, No Guarding, No Rebound Extremity: Normal ROM Neurological/Psych: Oriented x3, Normal Speech, Normal Cognition ED Course And Treatment - Laboratory Results Result Diagrams: 01/19/19 15:15 01/19/19 15:15 Lab Results: pO2 41 mm/Hg (30-55) 01/19/19 15:33 VBG pH 7.41 (7.32-7.43) 01/19/19 15:33 VBG pCO2 39 mmHg (40-60) L 01/19/19 15:33 VBG HCO3 24.4 mmol/L 01/19/19 15:33 VBG Total CO2 25.9 mmol/L (22-28) 01/19/19 15:33 VBG O2 Sat (Calc) 81.0 % (40-65) H 01/19/19 15:33 VBG Base Excess 0.1 mmol/L (0.0-2.0) 01/19/19 15:33 VBG Potassium 3.2 mmol/L (3.6-5.2) L 01/19/19 15:33 Sodium 140.0 mmol/l (132-148) 01/19/19 15:33 Chloride 107.0 mmol/L (98-107) 01/19/19 15:33 Glucose 94 mg/dl (65-105) 01/19/19 15:33 Lactate 1.2 mmol/L (0.7-2.1) 01/19/19 15:33 PT 12.3 SECONDS (9.7-12.2) H 01/19/19 15:15 INR 1.1 01/19/19 15:15 APTT 37 SECONDS (21-34) H 01/19/19 15:15 Total Bilirubin 1.3 mg/dL (0.2-1.3) 01/19/19 15:15 AST 41 U/L (14-36) H 01/19/19 15:15 ALT 9 U/L (9-52) D 01/19/19 15:15 Alkaline Phosphatase 171 U/L (38-126) H 01/19/19 15:15 Total Protein 8.2 g/dL (6.3-8.3) 01/19/19 15:15 Albumin 4.6 g/dL (3.5-5.0) 01/19/19 15:15 Globulin 3.5 gm/dL (2.2-3.9) 01/19/19 15:15 Albumin/Globulin Ratio 1.3 (1.0-2.1) 01/19/19 15:15 Urine Color Aneta (YELLOW) 01/19/19 12:09 Urine Clarity Clear (Clear) 01/19/19 12:09 Urine pH 6.0 (5.0-8.0) 01/19/19 12:09 Ur Specific [place] 1.020 (1.003-1.030) 01/19/19 12:09 Urine Protein Negative mg/dL (NEGATIVE) 01/19/19 12:09 Urine Glucose (UA) Normal mg/dL (Normal) 01/19/19 12:09 Urine Ketones Negative mg/dL (NEGATIVE) 01/19/19 12:09 Urine Blood 1+ (NEGATIVE) H 01/19/19 12:09 Urine Nitrate Negative (NEGATIVE) 01/19/19 12:09 Urine Bilirubin Negative (NEGATIVE) 01/19/19 12:09 Urine Urobilinogen Normal mg/dL (0.2-1.0) 01/19/19 12:09 Ur Leukocyte Esterase Neg Silvano/uL (Negative) 01/19/19 12:09 Urine WBC (Auto) 1 /hpf (0-5) 01/19/19 12:09 Urine RBC (Auto) 6 /hpf (0-3) H 01/19/19 12:09 Ur Squamous Epith Cells 1 /hpf (0-5) 01/19/19 12:09 Urine Bacteria Rare (<OCC) 01/19/19 12:09 ECG Interpretation: Abnormal Interpretation Of ECG: Normal sinus rhythm at 97bpm. Nonspecific ST and T wave abnormalities. Abnormal EKG. O2 Sat by Pulse Oximetry: 97 (RA) Pulse Ox Interpretation: Normal Medical Decision Making Medical Decision Making: Plan: Labs- unremarkable EKG- no acute changes CXR- unremarkable Flu Swab- negative but will treat based on clinical impression Motrin 600mg PO and Tamiflu 75mg PO Given Patient verbalizes understanding and is in agreement with plan. Patient is stable for discharge: Temp 99.5F Disposition Counseled Patient/Family Regarding: Studies Performed, Diagnosis, Need For Followup, Rx Given - Disposition Referrals: Bryan Johnston MD [Staff Provider] - Disposition: HOME/ ROUTINE Disposition Time: 17:44 Condition: STABLE Additional Instructions: Start Tamiflu twice a day for 5 days Alternate with Tylenol and Motrin q4-6 hrs for fever Rest and Hydration Follow up with PMD in 1-2 days Return to ED if symptoms worsen Prescriptions: Acetaminophen [Tylenol] 3 tab PO Q6 PRN #60 capsule PRN Reason: Fever >100.4 F Oseltamivir Phosphate [Tamiflu] 75 mg PO BID #10 capsule Instructions: Flu, Adult (DC) Forms: [employer] (Nepali) Print Language: ICELANDIC - Clinical Impression Clinical Impression: Influenza-like illness - PA / DUST HAND[employer]ER / Resident Statement MD/DO has reviewed & agrees with the documentation as recorded. - Scribe Statement The provider has reviewed the documentation as recorded by the Scribe (Emigdio Monet) All medical record entries made by the Scribe were at my direction and personally dictated by me. I have reviewed the chart and agree that the record accurately reflects my personal performance of the history, physical exam, medical decision making, and the department course for this patient. I have also personally directed, reviewed, and agree with the discharge instructions and disposition.
[2019-01-19 16:21] VITALS: BP 146/91
[2019-01-19 16:52] VITALS: PULSE 99; RESP 15
--- NOTE | 2019-01-19 17:18 | RAD ---
Date of service: 01/19/2019 HISTORY: Sepsis Patient COMPARISON: Comparison is made to the previous study dated 12/20/2016 TECHNIQUE: Chest PA and lateral FINDINGS: LUNGS: No evidence of new infiltrate or consolidation in the lungs. PLEURA: No significant pleural effusion identified. No pneumothorax apparent. CARDIOVASCULAR: No aortic atherosclerotic calcification present. Normal cardiac size. No pulmonary vascular congestion. OSSEOUS STRUCTURES: No significant abnormalities. VISUALIZED UPPER ABDOMEN: Normal. OTHER FINDINGS: Right-sided Infusaport is again seen in place. IMPRESSION: No significant interval changes noted since the prior study.
[2019-01-19 17:48] VITALS: TEMP 99.5
--- NOTE | 2019-01-20 12:52 | CARD ---
APPROVED REPORT Date of service: 01/19/2019 EKG Measurement Heart [id number] <Conclusion> Normal sinus rhythm Nonspecific ST and T wave abnormality Abnormal ECG
== END 2019-01-19 18:14 | disposition home or self-care (01) ==
LOC: C.ER 11:23
DX: J11.1 Influenza due to unidentified influenza virus with other respiratory manifestations (principal)

== ENCOUNTER 2019-03-28 15:07 | Outpatient (CLI) | payer OTHER | END 2019-03-28 15:08 | disposition home or self-care (01) | LOC: C.MAMMO 15:07 | DX: Z12.31 Encounter for screening mammogram for malignant neoplasm of breast (principal) ==